=== PATIENT | male | born 2000 | race Caucasian/White ===

== ENCOUNTER 2020-08-01 02:24 | Emergency (ER) | payer OTHER ==
[~2020-08-01] VITALS: Ht 170.2 cm; Wt 72.7 kg
[2020-08-01 03:14] LABS: BASO % 0.3 % (0.0-2.0); EOS % 0.4 % (0-4.0); GRAN # 8.6 (1.4-6.5); GRAN % 83.2 % (42.2-75.2); HEMOGLOBIN 14.4 g/dl (13.5-18.0); LYMPH % 9.3 % (20.0-51.0); MEAN CELL VOLUME 87 fl (80.0-100.0); MEAN CORPUSCULAR HEMOGLOBIN 28 pg (27.0-31.0); MEAN CORPUSCULAR HGB CONC 33 g/dl (33.0-37.0); MEAN PLATELET VOLUME 10.2 fl (7.4-10.4); MONO # 0.7 (0.1-0.6); MONO % 6.4 % (1.7-9.3); PLATELET COUNT 230 K/mm3 (130-400); RED BLOOD COUNT 5.07 M/mm3 (4.20-5.60); REDCELL DISTRIBUTION WIDTH-CV 13.8 % (11.5-14.5)
[2020-08-01 03:30] LABS: ALBUMIN 4.4 gm/dL (3.5-5.0); BILIRUBIN,TOTAL 0.2 mg/dL (0.0-1.0); CALCIUM 8.6 mg/dL (8.4-10.2); CREATININE, serum 0.85 (0.66-1.25); POTASSIUM 3.9 mmol/L (3.4-5.0); TOTAL PROTEIN 7.5 gm/dL (6.4-8.2)
[2020-08-01 05:50] LABS: TRICYCLIC ANTIDEPRESS URINE NEGATIVE
[2020-08-01 05:55] VITALS: BP 105/47; PULSE 83; TEMP 98.1
== END 2020-08-01 05:55 | disposition home or self-care (01) ==
LOC: COL.ER 02:24
PROVIDERS: Emergency Medicine
DX: R56.9 Unspecified convulsions (principal); F17.210 Nicotine dependence, cigarettes, uncomplicated

== ENCOUNTER → 2020-11-09 | Outpatient (CLI) | payer OTHER | LOC: COL.RAD 06:54 | DX: R56.9 Unspecified convulsions (principal) | CPT/HCPCS: A9585 ==

== ENCOUNTER → 2020-12-08 | Outpatient (CLI) | payer OTHER | LOC: COL.CARD 09:19 | DX: R56.9 Unspecified convulsions (principal) ==